=== PATIENT | male | born 1995 | race Caucasian/White ===

== ENCOUNTER 2017-12-31 11:10 | Emergency (ER) | payer OTHER ==
[~2017-12-31] VITALS: Ht 165.1 cm; Wt 74.8 kg
[2017-12-31 11:18] VITALS: BP_SYST 151
[2017-12-31] MEDS ORDERED: MORPHINE 4 MG/ML INJ. SYRINGE IM ONE (11:45)
[2017-12-31] MEDS ORDERED: ONDANSETRON HCL 4 MG/2 ML VIAL IM ONE (11:45)
[2017-12-31] MEDS ORDERED: MORPHINE 4 MG/ML INJ. SYRINGE ONE (11:48)
[2017-12-31] MEDS ORDERED: ONDANSETRON HCL 4 MG/2 ML VIAL ONE (11:48)
[2017-12-31 14:22] VITALS: BP_SYST 124
== END 2017-12-31 14:22 | disposition home or self-care (01) ==
LOC: SED 11:10
DX: S52.122A Displaced fracture of head of left radius, initial encounter for closed fracture (principal); S63.502A Unspecified sprain of left wrist, initial encounter; W01.0XXA Fall on same level from slipping, tripping and stumbling without subsequent striking against object, initial encounter; Y93.66 Activity, soccer; Y92.89 Other specified places as the place of occurrence of the external cause; Y99.8 Other external cause status
CPT/HCPCS: 29105; 73080; 73110; 96372; 99284; J2270; J2405